=== PATIENT | female | born 1980 | race Caucasian/White ===

== ENCOUNTER 2017-09-15 09:36 | Emergency (ER) | payer OTHER ==
[2017-09-15] MEDS ORDERED: Bupivacaine 0.5% 10 ML VIAL ONE (09:44)
== END 2017-09-15 09:52 | disposition home or self-care (01) ==
LOC: BURERS 09:36
DX: K08.89 Other specified disorders of teeth and supporting structures (principal); F17.210 Nicotine dependence, cigarettes, uncomplicated
CPT/HCPCS: 99282; J3490